=== PATIENT | female | born 1980 | race Caucasian/White ===

== ENCOUNTER 2016-05-13 12:45 | Emergency (ER) | payer BC, MEDICAID ==
[2016-05-13 14:52] VITALS: BP 128/91
[2016-05-13] MEDS ORDERED: Ketorolac INJ* 60 MG/2 ML VIAL IM ONE (15:01)
[2016-05-13] MEDS ORDERED: Ondansetron ODT TAB* 4 MG PO ONE (15:25)
--- NOTE | 2016-05-13 15:25 | UC ---
Headache HPI - HPI Summary HPI Summary: patient presents today with headache and facial pain from her trigeminal neuralgia, being exacerbated by a migraine that starte 2 days ago. pateint has not been able to take her medications becasue she left them at work. she takes opana for the pain and states the headache is on the right side, but it has been irritated enough that she has pain all over her face and head. - History Of Current Complaint Chief Complaint: UCGeneralIllness Stated Complaint: MIGRAINE HEADACHE Time Seen by Provider: 05/13/16 14:54 Hx Obtained From: Patient Hx Last Menstrual Period: 2013 ?: No Onset/Duration: Sudden Onset, Lasting Days Onset Of Symptoms: Gradual Currently Pain Is: Current Pain Scale(0-10)= - 10 Pain Scale Used: 0-10 Numeric Character: Dull, Throbbing, Migraine Location of Headache: Frontal, Temporal Aggravating Factor: Exertion, Position Change, Bright Lights Allevating Factors: Nothing Associated Signs And Symptoms: Positive: Dizziness, Nausea, Visual Changes - Risk Factors SAH Risk Factors: Negative Meningitis Risk Factors: Negative SDH Risk Factors: Negative Temporal Arteritis Risk Factors: Negative - Allergies/Home Medications Allergies/Adverse Reactions: Allergies Allergy/AdvReac Type Severity Reaction Status Date / Time Carbamazepine [From Tegretol] 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 Zolmitriptan [From Zomig] Allergy Severe Difficulty Verified 12/16/14 11:58 Breathing Home Medications: Home Medications Oxymorphone HCl [Opana] 10 mg PO QID PRN 05/13/16 [History Confirmed 05/13/16] Sumatriptan Succinate [Imitrex] 100 mg PO PRN 05/13/16 [History] PMH/Surg Hx/FS Hx/Imm Hx Previously Healthy: Yes Endocrine History Of: Reports: Diabetes - prior type 2 until weight loss Denies: Thyroid Disease Cardiovascular History Of: Reports: Cardiac Disorders - pericarditis, Hypertension Denies: Pacemaker/ICD Respiratory History Of: Denies: COPD, Asthma GI/ History Of: Denies: Gastroesophageal Reflux, Renal Disease Neurological History Of: Denies: CVA, Dementia, Seizures Other History Of: Negative For: Anticoagulant Therapy - Surgical History Surgical History: None Surgery Procedure, Year, and Place: x2. breast reduction. gallbladder. gastic bypass [id number]. eye muscle surgery- for crosse- eyed - Family History Known Family History: Positive: None - Social History Alcohol Use: Rare Substance Use Type: None Smoking Status (MU): Never Smoked Tobacco Review of Systems Constitutional: Fatigue Skin: Negative Eyes: Blurred Vision, Photophobia ENT: Negative Respiratory: Negative Cardiovascular: Negative Gastrointestinal: Vomiting Genitourinary: Negative Motor: Negative Neurovascular: Negative Musculoskeletal: Myalgia Neurological: Headache Psychological: Negative All Other Systems Reviewed And Are Negative: Yes Physical Exam Triage Information Reviewed: Yes Appearance: Well-Nourished, Ill-Appearing, Pain Distress Vital Signs: Initial Vital Signs Temp 99.7 F 05/13/16 14:41 Pulse 111 05/13/16 14:41 Resp 16 05/13/16 14:41 BP 128/91 05/13/16 14:41 Pulse Ox 95 05/13/16 14:41 Vital Signs Reviewed: Yes Eye Exam: Normal Eyes: Positive: Conjunctiva Clear ENT Exam: Normal ENT: Positive: Hearing grossly normal, Pharyngeal erythema, TMs normal Dental Exam: Normal Neck exam: Normal Neck: Positive: Nontender - along the SCM bilaterally Respiratory Exam: Normal Respiratory: Positive: Chest non-tender, Lungs clear, Normal breath sounds Cardiovascular Exam: Normal Cardiovascular: Positive: RRR, No Murmur, Pulses Normal Abdominal Exam: Normal Abdomen Description: Positive: Nontender, No Organomegaly, Soft Bowel Sounds: Positive: Present Musculoskeletal Exam: Normal Musculoskeletal: Positive: Strength Intact, ROM Intact, No Edema Neurological Exam: Normal, Other Neurological: Positive: Alert, Muscle Tone Normal, Other: - face is extremely sensitive to touch and movement. PERRLA, EOMI, Cranial nerves intact Psychological Exam: Normal Skin Exam: Normal Headache Course/Dx - Course Course Of Treatment: hx obtained, exam performed, medication administered for migraine and nausea with improved results. patient is flushed, body aches and daughter tested positive for the flu. I believe it is possible she may be comeing down with the flu as well. - Differential Dx/Diagnosis Differential Diagnosis/HQI/PQRI: Subdural Hematoma, Meningitis, Migraine, Temporal Arteritis, Tension Headache Provider Diagnoses: migraine. hx of trigeminal neuralgia Discharge - Discharge Plan Condition: Stable Disposition: HOME Prescriptions: predniSONE TAB* [Deltasone TAB*] 50 mg PO DAILY #5 tab Patient Education Materials: Migraine Headache (ED) Referrals: Carmelo Morse MD [Primary Care Provider] - Additional Instructions: i would recommend resting and increasing fluid intake. you have been exposed to the flu and it is possible that you are coming down with it as well. the toradol will last in your system for 8 hours. No ibuprofen products until 11 pm. i recommend following up with Nohelia shanks and dr noriega for pain managment since ou have missed a few days of your pain medication. I am giving you a few days of prednisone to reduce any inflammation. other possible method of treatment to look into is accupuncutre which as been found to be beneficial for triageminal neuralgia.
== END 2016-05-13 16:05 | disposition home or self-care (01) ==
LOC: UCCORT 12:45
DX: G43.909 Migraine, unspecified, not intractable, without status migrainosus (principal); G50.0 Trigeminal neuralgia; Z88.8 Allergy status to other drugs, medicaments and biological substances
CPT/HCPCS: 96372; 99212; A9270-GY; G0463; J1885